=== PATIENT | female | born 1995 | race African-American/Black ===

== ENCOUNTER 2019-07-20 01:10 | Emergency (ER) | payer SELFPAY ==
[2019-07-20] MEDS ORDERED: DIAZEPAM 10 MG/2 ML INJ SYRINGE ONE (02:18)
[2019-07-20 02:40] LABS: Barbiturates NEGATIVE (NEGATIVE); Benzodiazepines NEGATIVE (NEGATIVE); Cocaine NEGATIVE (NEGATIVE); METHAMPHETAM NEGATIVE (NEGATIVE); Methadone NEGATIVE (NEGATIVE); Opiates NEGATIVE (NEGATIVE); Phencyclidine NEGATIVE (NEGATIVE); THC Cannibis POSITIVE (NEGATIVE)
[2019-07-20] MEDS ORDERED: NA CHLORIDE 0.9% 1,000 ML ONE (02:47)
[2019-07-20 02:51] LABS: Urine Blood NEGATIVE (NEG); Urine Glucose NEGATIVE (NEG); Urine Protein TRACE (NEG); Urine Specific Gravity 1.025 (1.005-1.030)
[2019-07-20] MEDS ORDERED: dexAMETHasone 10 MG/ML VIAL ONE (03:23)
[2019-07-20 03:51] LABS: Calcium Oxalate Crystals- Ur MANY (NONE SEEN); Urine Amorphous Sediment 2+ /HPF (NONE SEEN); Urine Bacteria <20 /HPF (<20); Urine Culture Reflex Order NOT NEEDED; Urine RBC NONE SEEN /HPF (NONE SEEN)
[2019-07-20 04:00] LABS: Absolute Lymphocytes (CBC) 2.8 K/uL (0.7-4.9); Basophils % 0.7 % (0-1.3); Hematocrit 35.7 % (36.0-45.0); Lymphocytes % 34.5 % (15.3-44.8); MPV 10.6 fL (7.6-11.3); RBC Red Blood Cell Count 4.73 M/uL (3.86-4.86)
[2019-07-20 04:06] LABS: BUN Blood Urea Nitrogen 7 mg/dL (7-18); Bicarbonate 23 mmol/L (21-32); Glucose Level 84 mg/dL (74-106); Potassium 3.6 mmol/L (3.5-5.1); Sodium Level 143 mmol/L (136-145)
--- NOTE | 2019-07-20 04:41 | ER ---
Nurse's Notes [facility] Name: Dora Diamond Age: 24 yrs Sex: Female : 1995 Arrival Date: 07/20/2019 Time: 01:12 Bed 18 Private MD: Diagnosis: Dental caries;Trigeminal neuralgia Presentation: 07/20 01:25 Presenting complaint: Patient states: States she feels like her cheeks are throbbing wh and swollen. Pt states the feeling started yesterday afternoon. States a 10/10 on a pain scale. Transition of care: patient was not received from another setting of care. Onset of symptoms was July 19, 2019. Risk Assessment: Do you want to hurt yourself or someone else? Patient reports no desire to harm self or others. Initial Sepsis Screen: Does the patient meet any 2 criteria? No. Patient's initial sepsis screen is negative. Does the patient have a suspected source of infection? No. Patient's initial sepsis screen is negative. Care prior to arrival: None. 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 - Social history:: Smoking status: Patient uses tobacco products, denies chronic smoking, but will smoke occasionally. - Ebola Screening: : Patient negative for fever greater than or equal to 101.5 degrees Fahrenheit, and additional compatible Ebola Virus Disease symptoms Patient denies exposure to infectious person. Screenin:29 Abuse screen: Denies threats or abuse. Denies injuries from another. Nutritional screening: No deficits noted. Tuberculosis screening: No symptoms or risk factors identified. Fall Risk None identified. Assessment: 01:30 General: Appears in no apparent distress. comfortable, Behavior is calm, cooperative, wh appropriate for age. Pain: Complains of pain in right cheek, left cheek, right jaw and left jaw Pain does not radiate. Pain currently is 10 out of 10 on a pain scale. Quality of pain is described as throbbing, Pain began 1 day ago. Neuro: Level of Consciousness is awake, alert, obeys commands, Oriented to person, place, time, situation, Appropriate for age. Cardiovascular: Capillary refill < 3 seconds. Respiratory: Airway is patent Respiratory effort is even, unlabored, Respiratory pattern is regular, symmetrical. GI: Abdomen is flat, non-distended. : No signs and/or symptoms were reported regarding the genitourinary system. EENT: Throat is pink. Derm: Skin is intact, is healthy with good turgor, Skin is pink, warm \T\ dry. normal. Musculoskeletal: Circulation, motion, and sensation intact. 02:45 Reassessment: Patient appears in no apparent distress at this time. No changes from previously documented assessment. Patient and/or family updated on plan of care and expected duration. Pain level reassessed. Patient is alert, oriented x 3, equal unlabored respirations, skin warm/dry/pink. NOtified Provider Pt still C/O pain with orders made and carried out. 04:15 Reassessment: Patient appears in no apparent distress at this time. No changes from previously documented assessment. Patient and/or family updated on plan of care and expected duration. Pain level reassessed. Patient is alert, oriented x 3, equal unlabored respirations, skin warm/dry/pink. Vital Signs: 01:31 BP 113 / 86; Pulse 73; Resp 18; Temp 98.2; Pulse Ox 100% ; Weight 65.77 kg; Height 5 wh ft. 11 in. (180.34 cm); 02:45 BP 114 / 76; Pulse 57; Resp 18; Pulse Ox 100% on R/A; Pain 6/10; 04:14 BP 124 / 87; Pulse 78; Resp 18; Pulse Ox 99% ; wh 01:31 Body Mass Index 20.22 (65.77 kg, 180.34 cm) Luis Coma Score: 03:33 Eye Response: spontaneous(4). Verbal Response: oriented(5). Motor Response: obeys snw commands(6). Total: 15. ED Course: 01:12 Patient arrived in ED. cl3 01:17 Bill Pereira is Primary Nurse. wh 01:27 Triage completed. 01:29 Patient has correct armband on for positive identification. Bed in low position. Call light in reach. Side rails up X 1. Pulse ox on. NIBP on. 01:30 Arm band placed on right wrist. 01:31 Paris Ferguson [facility]. snw 01:31 Neto Jay MD is Attending Physician. snw 02:20 Inserted saline lock: 22 gauge in right antecubital area, using aseptic technique. Blood collected. 04:39 Benito Walker MD is Referral Physician. rn 04:53 No provider procedures requiring assistance completed. IV discontinued, intact, bleeding controlled, No redness/swelling at site. Administered Medications: 02:20 Drug: NS 0.9% 1000 ml Route: IV; Rate: 1 bolus; Site: right antecubital; 03:23 Follow up: Response: No adverse reaction; IV Status: Completed infusion 02:25 Drug: Valium 5 mg Route: IVP; Site: right antecubital; 03:23 Follow up: Response: No adverse reaction; RASS: Alert and Calm (0) 03:23 Drug: Decadron - Dexamethasone 10 mg Route: IVP; Site: right antecubital; 04:54 Follow up: Response: No adverse reaction 04:50 Drug: TORadol - Ketorolac 15 mg Route: IVP; Site: right antecubital; 04:54 Follow up: Response: No adverse reaction; Pain is decreased Outcome: 04:40 Discharge ordered by . rn 04:53 Discharged to home ambulatory, with friend. 04:53 Condition: stable 04:53 Discharge instructions given to patient, Instructed on discharge instructions, follow up and referral plans. no drinking with medication, no driving heavy equipment, medication usage, POC Demonstrated understanding of instructions, follow-up care, medications, POC Prescriptions given X 3. 04:55 Patient left the ED. Signatures: Paris Ferguson FNP-C PENSION FUND MANAGER-Csnw Neto Jay MD MD rn Habalo, Winsy Rajan Zapata cl3 Corrections: (The following items were deleted from the chart) 04:15 02:45 BP 124 / 87; Pulse 78bpm; Resp 18bpm; Pulse Ox 99%; [facility]
--- NOTE | 2019-07-20 04:41 | EDPHYS ---
Physician Documentation [facility] Name: Dora Diamond Age: 24 yrs Sex: Female : 1995 Arrival Date: 07/20/2019 Time: 01:12 Bed 18 Private MD: ED Physician Neto Jay HPI: 07/20 01:43 This 24 yrs old Black Female presents to ER via Ambulatory with complaints of Facial snw Pain- Burning Sensation. 01:43 Onset: The symptoms/episode began/occurred acutely, today. Associated signs and snw symptoms: The patient has no apparent associated signs or symptoms. Modifying factors: The patient symptoms are alleviated by nothing, the patient symptoms are aggravated by stimulation, talking, touching ear. The patient has not experienced similar symptoms in the past. The patient has not recently seen a physician. no new medications, no drugs, no ETOH, denies fever, recent illness. 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 - Social history:: Smoking status: Patient uses tobacco products, denies chronic smoking, but will smoke occasionally. - Ebola Screening: : Patient negative for fever greater than or equal to 101.5 degrees Fahrenheit, and additional compatible Ebola Virus Disease symptoms Patient denies exposure to infectious person. ROS: 01:43 Constitutional: Negative for fever, chills, and weight loss, Eyes: Negative for injury, snw pain, redness, and discharge, Neck: Negative for injury, pain, and swelling, Cardiovascular: Negative for chest pain, palpitations, and edema, Respiratory: Negative for shortness of breath, cough, wheezing, and pleuritic chest pain, Abdomen/GI: Negative for abdominal pain, nausea, vomiting, diarrhea, and constipation, Back: Negative for injury and pain, : Negative for injury, bleeding, discharge, and swelling, MS/Extremity: Negative for injury and deformity, Skin: Negative for injury, rash, and discoloration, Neuro: Negative for headache, weakness, numbness, tingling, and seizure. 01:43 ENT: Positive for left facial burning and throbbing pain x today. Exam: 01:40 Constitutional: This is a well developed, well nourished patient who is awake, alert, snw and in no acute distress. Eyes: Pupils equal round and reactive to light, extra-ocular motions intact. Lids and lashes normal. Conjunctiva and sclera are non-icteric and not injected. Cornea within normal limits. Periorbital areas with no swelling, redness, or edema. ENT: Nares patent. No nasal discharge, no septal abnormalities noted. Tympanic membranes are normal and external auditory canals are clear. Oropharynx with no redness, swelling, or masses, exudates, or evidence of obstruction, uvula midline. Mucous membranes moist. Neck: Trachea midline, no thyromegaly or masses palpated, and no cervical lymphadenopathy. Supple, full range of motion without nuchal rigidity, or vertebral point tenderness. No Meningismus. Chest/axilla: Normal chest wall appearance and motion. Nontender with no deformity. No lesions are appreciated. Cardiovascular: Regular rate and rhythm with a normal S1 and S2. No gallops, murmurs, or rubs. Normal PMI, no JVD. No pulse deficits. Respiratory: Lungs have equal breath sounds bilaterally, clear to auscultation and percussion. No rales, rhonchi or wheezes noted. No increased work of breathing, no retractions or nasal flaring. Abdomen/GI: Soft, non-tender, with normal bowel sounds. No distension or tympany. No guarding or rebound. No evidence of tenderness throughout. Back: No spinal tenderness. No costovertebral tenderness. Full range of motion. Skin: Warm, dry with normal turgor. Normal color with no rashes, no lesions, and no evidence of cellulitis. MS/ Extremity: Pulses equal, no cyanosis. Neurovascular intact. Full, normal range of motion. Neuro: Awake and alert, GCS 15, oriented to person, place, time, and situation. Cranial nerves II-XII grossly intact. Motor strength 5/5 in all extremities. Sensory grossly intact. Cerebellar exam normal. Normal gait. Psych: Awake, alert, with orientation to person, place and time. Behavior, mood, and affect are anxious. Vital Signs: 01:31 BP 113 / 86; Pulse 73; Resp 18; Temp 98.2; Pulse Ox 100% ; Weight 65.77 kg; Height 5 wh ft. 11 in. (180.34 cm); 02:45 BP 114 / 76; Pulse 57; Resp 18; Pulse Ox 100% on R/A; Pain 6/10; wh 04:14 BP 124 / 87; Pulse 78; Resp 18; Pulse Ox 99% ; wh 01:31 Body Mass Index 20.22 (65.77 kg, 180.34 cm) wh [place] Coma Score: 03:33 Eye Response: spontaneous(4). Verbal Response: oriented(5). Motor Response: obeys snw commands(6). Total: 15. MDM: 01:31 Patient medically screened. snw 03:33 Data reviewed: vital signs, nurses notes. Counseling: I had a detailed discussion with snw the patient and/or guardian regarding: the historical points, exam findings, and any diagnostic results supporting the discharge/admit diagnosis, the presence of at least one elevated blood pressure reading (>120/80) during this emergency department visit, lab results, the need for outpatient follow up, to return to the emergency department if symptoms worsen or persist or if there are any questions or concerns that arise at home. Response to treatment: the patient's symptoms have mildly improved after treatment. Special discussion: I have referred the patient to see his PCP for further evaluation of high blood pressure. Based on the history and exam findings, there is no indication for further emergent testing or inpatient evaluation. I discussed with the patient/guardian the need to see the neurologist for further evaluation of the symptoms. I discussed with the patient/guardian the need to see the primary care provider for further evaluation of the symptoms. 07/20 01:40 Order name: Urine Drug Screen; Complete Time: 02:51 snw 07/20 01:40 Order name: Urine Microscopic Only; Complete Time: 04:27 snw 07/20 01:40 Order name: CBC with Diff; Complete Time: 04:27 snw 07/20 01:40 Order name: Magnesium; Complete Time: 04:27 snw 07/20 01:40 Order name: Sed Rate; Complete Time: 04:27 snw 07/20 01:42 Order name: Chem 7; Complete Time: 04:27 snw 07/20 01:40 Order name: Urine Test (obtain specimen); Complete Time: 02:28 snw 07/20 01:40 Order name: Urine Dipstick-Ancillary (obtain specimen); Complete Time: 02:28 snw 07/20 02:15 Order name: Urine Dipstick--Ancillary (enter results); Complete Time: 03:03 cm6 07/20 02:15 Order name: Urine --Ancillary (enter results); Complete Time: 03:03 cm6 07/20 01:40 Order name: Misc. Order: 15L NRB x 15 min; Complete Time: 02:28 snw Administered Medications: 02:20 Drug: NS 0.9% 1000 ml Route: IV; Rate: 1 bolus; Site: right antecubital; 03:23 Follow up: Response: No adverse reaction; IV Status: Completed infusion 02:25 Drug: Valium 5 mg Route: IVP; Site: right antecubital; 03:23 Follow up: Response: No adverse reaction; RASS: Alert and Calm (0) 03:23 Drug: Decadron - Dexamethasone 10 mg Route: IVP; Site: right antecubital; 04:54 Follow up: Response: No adverse reaction 04:50 Drug: TORadol - Ketorolac 15 mg Route: IVP; Site: right antecubital; 04:54 Follow up: Response: No adverse reaction; Pain is decreased Disposition: 04:37 Co-signature as Attending Physician, Neto Jay MD Attestation: The patient's history, rn exam findings, diagnostics, and a summary of any interventions or procedures was reviewed in detail with Paris TAYLOR Patient unable to tell me if pain originated from poor dentition, specifically deep cavity on left lower mouth. Some of story sounds like could be trigeminal neuralgia. Unable to differentiate based on patient description so will treat with abx/pain meds/steroids and dentist/neuro f/u. . Disposition: 07/20/19 04:40 Discharged to Home. Impression: Dental caries, Trigeminal neuralgia. - Condition is Stable. - Discharge Instructions: Pain Without a Known Cause, Trigeminal Neuralgia, Dental Pain, Neuropathic Pain. - Prescriptions for Clindamycin HCl 300 mg Oral Capsule - take 1 capsule by ORAL route every 6 hours for 10 days; 40 capsule. Ibuprofen 800 mg Oral Tablet - take 1 tablet by ORAL route every 12 hours As needed take with food; 20 tablet. Ultram 50 mg Oral Tablet - take 1 tablet by ORAL route every 6-8 hours As needed; 15 tablet. - Work release form, Medication Reconciliation Form, Thank You Letter, Antibiotic Education, Prescription Opioid Use form. - Follow up: Benito Walker MD; When: As needed; Reason: Recheck today's complaints, Re-evaluation by your physician. - Problem is new. - Symptoms have improved. Signatures: Dispatcher [employer] EDMS Paris Ferguson, CLEANER AND POLISHER-C CLEANER AND POLISHER-Csnw Neto Jay MD MD rn Habalo, Winsy Corrections: (The following items were deleted from the chart) 04:55 04:40 07/20/2019 04:40 Discharged to Home. Impression: Dental caries; Trigeminal wh neuralgia. Condition is Stable. Discharge Instructions: Pain Without a Known Cause, Trigeminal Neuralgia. Forms are Work release form, Medication Reconciliation Form, Thank You Letter, Antibiotic Education, Prescription Opioid Use. Follow up: Benito Walker; When: As needed; Reason: Recheck today's complaints, Re-evaluation by your physician. Problem is new. Symptoms have improved. rn
[2019-07-20] MEDS ORDERED: KETOROLAC 30 MG/ML INJ ONE (04:44)
[2019-07-20 05:10] VITALS: TEMP 98.2
[2019-07-20 12:45] VITALS: BP 124/87; O2SAT 99
== END 2019-07-20 04:55 | disposition home or self-care (01) ==
LOC: ER 01:10
DX: K02.9 Dental caries, unspecified (principal); G50.0 Trigeminal neuralgia; Z88.0 Allergy status to penicillin; Z72.0 Tobacco use
CPT/HCPCS: 36415; 80048; 80307; 81003; 81015; 81025; 83735; 85025; 85652; 96361; 96374; 96375; 99284; J1100; J3360; J7030

== ENCOUNTER 2020-03-26 00:02 | Emergency (ER) | payer SELFPAY ==
[2020-03-26] MEDS ORDERED: TETANUS & DIPHTHERIA TOX,ADULT 0.5 ML VIAL ONE (00:42)
[2020-03-26] MEDS ORDERED: HYDROCODONE/APAP 5/325 MG TAB ONE (00:42)
[2020-03-26] MEDS ORDERED: CIPROFLOXACIN HCL 500 MG TAB ONE (00:42)
--- NOTE | 2020-03-26 01:27 | ER ---
Nurse's Notes [facility] Name: Dora Diamond Age: 25 yrs Sex: Female : 1995 Arrival Date: 03/26/2020 Time: 00:04 Bed 2 Private MD: Diagnosis: Puncture wound without foreign body, right foot;Periapical abscess without sinus Presentation: 03/26 00:21 Chief complaint: Patient states: "I stepped on a andrea nail tonight and I am also jd3 having lower left sided dental pain with an abscessed tooth.". Coronavirus screen: Proceed with normal triage. Ebola Screen: Patient negative for fever greater than or equal to 101.5 degrees Fahrenheit, and additional compatible Ebola Virus Disease symptoms. Initial Sepsis Screen: Does the patient meet any 2 criteria? No. Patient's initial sepsis screen is negative. Does the patient have a suspected source of infection? No. Patient's initial sepsis screen is negative. Risk Assessment: Do you want to hurt yourself or someone else? Patient reports no desire to harm self or others. Onset of symptoms was March 26, 2020. 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 - Social history:: Smoking status: Patient reports the use of cigarette tobacco products, smokes one-half pack cigarettes per day. Screenin:28 Abuse screen: Denies threats or abuse. Nutritional screening: No deficits noted. jd3 Tuberculosis screening: No symptoms or risk factors identified. Fall Risk Ambulatory Aid- None/Bed Rest/Nurse Assist (0 pts). Gait- Normal/Bed Rest/Wheelchair (0 pts) Mental Status- Oriented to own ability (0 pts). Total Hampton Fall Scale indicates No Risk (0-24 pts). Assessment: 00:24 General: Appears in no apparent distress. uncomfortable, Behavior is calm, cooperative, jd3 appropriate for age. Pain: Complains of pain in left side of head and right foot Quality of pain is described as aching, tender. Neuro: Level of Consciousness is awake, alert, obeys commands, Oriented to person, place, time, situation. Cardiovascular: Denies chest pain, Capillary refill < 3 seconds Patient's skin is warm and dry. Respiratory: Airway is patent Respiratory effort is even, unlabored, Respiratory pattern is regular, symmetrical, Denies cough, shortness of breath. GI: No signs and/or symptoms were reported involving the gastrointestinal system. : No signs and/or symptoms were reported regarding the genitourinary system. EENT: Reports abcess tooth on the left side of mouth. Derm: Skin is intact, Skin is dry, Skin is normal, Skin temperature is warm Wound noted ball of right foot Wound is small puncture wound noted, no redness noted, no bleeding noted. Musculoskeletal: Circulation, motion, and sensation intact. Range of motion: intact in all extremities, Swelling present in left side of mouth. 01:46 Reassessment: Patient appears in no apparent distress at this time. Patient and/or jd3 family updated on plan of care and expected duration. Pain level reassessed. Patient is alert, oriented x 3, equal unlabored respirations, skin warm/dry/pink. Patient states feeling better. Vital Signs: 00:23 BP 138 / 89; Pulse 98; Resp 17 S; Temp 98.0(TE); Pulse Ox 100% on R/A; Weight 63.5 kg jd3 (R); Height 5 ft. 11 in. (180.34 cm) (R); Pain 10/10; 01:46 BP 132 / 89; Pulse 75; Resp 17 S; Pulse Ox 100% on R/A; jd3 00:23 Body Mass Index 19.53 (63.50 kg, 180.34 cm) jd3 ED Course: 00:04 Patient arrived in ED. cf2 00:10 Horacio Carl NP is PHCP. pm1 00:16 Ren Ingram MD is Attending Physician. pm1 00:18 Perez Romano RN is Primary Nurse. jd3 00:22 Triage completed. jd3 00:23 Arm band placed on. jd3 00:28 Patient has correct armband on for positive identification. Bed in low position. Call jd3 light in reach. Side rails up X 1. Pulse ox on. NIBP on. 01:01 Foot Right 3 View XRAY In Process Unspecified. EDMS 01:46 No provider procedures requiring assistance completed. Patient did not have IV access jd3 during this emergency room visit. Administered Medications: 00:40 Drug: Roulette 5 mg-325 mg 1 tabs Route: PO; jd3 01:40 Follow up: Response: No adverse reaction jd3 00:41 Drug: Tetanus-Diphtheria Toxoid Adult 0.5 ml {Change Management Manager: batterii. Exp: jd3 10/27/2021. Lot #: [id number]. } Route: IM; Site: right deltoid; 01:40 Follow up: Response: No adverse reaction jd3 00:41 Drug: Cipro 500 mg Route: PO; jd3 01:40 Follow up: Response: No adverse reaction jd3 Outcome: 01:26 Discharge ordered by MD. pm1 01:46 Discharged to home ambulatory, with family. jd3 01:46 Condition: stable 01:46 Discharge instructions given to patient, Instructed on discharge instructions, follow up and referral plans. medication usage, Demonstrated understanding of instructions, follow-up care, medications, Prescriptions given X 2. 01:48 Patient left the ED. jd3 Signatures: Dispatcher [employer] EDMS Horacio Carl NP FIRE RANGER pm1 Perez Romano RN RN jd3 Dana Doyle cf2 Corrections: (The following items were deleted from the chart) 00:28 00:24 Musculoskeletal: Circulation, motion, and sensation intact. Range of motion: jd3 intact in all extremities, Swelling present in left side of head jd3
--- NOTE | 2020-03-26 01:27 | EDPHYS ---
Physician Documentation [facility] Name: Dora Diamond Age: 25 yrs Sex: Female : 1995 Arrival Date: 03/26/2020 Time: 00:04 Bed 2 Private MD: ED Physician Ren Ingram HPI: 03/26 00:15 This 25 yrs old Black Female presents to ER via Ambulatory with complaints of Stepped pm1 on Nail, Swollen cheek. 00:15 Onset: The symptoms/episode began/occurred today. pm1 00:15 The patient presents with a puncture wound, from a nail. The complaints affect the pm1 right foot. Context: The problem was sustained outdoors, resulted from the patient stepping on a nail, while wearing shoes, the patient can fully bear weight, the patient is able to ambulate. Associated signs and symptoms: The patient has no apparent associated signs or symptoms. Severity of symptoms: in the emergency department the symptoms have improved. The patient has not experienced similar symptoms in the past. Patient also reports swelling to left lower jaw area with dental pain. 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 - Social history:: Smoking status: Patient reports the use of cigarette tobacco products, smokes one-half pack cigarettes per day. ROS: 00:15 MS/extremity: Positive for puncture, of the ball of right foot, Negative for decreased pm1 range of motion, deformity. 00:15 Constitutional: Negative for fever, chills, and weight loss. 00:15 Cardiovascular: Negative for chest pain, palpitations, and edema, Respiratory: Negative for shortness of breath, cough, wheezing, and pleuritic chest pain, Abdomen/GI: Negative for abdominal pain, nausea, vomiting, diarrhea, and constipation, Back: Negative for injury and pain. 00:15 ENT: Positive for dental pain, Negative for sore throat, difficulty swallowing, difficulty handling secretions, hoarseness. 00:15 Skin: Positive for puncture, of the ball of right foot, Negative for cellulitis. Exam: 00:15 Constitutional: This is a well developed, well nourished patient who is awake, alert, pm1 and in no acute distress. Head/Face: Normocephalic, atraumatic. 00:15 Neck: Trachea midline, no thyromegaly or masses palpated, and no cervical lymphadenopathy. Supple, full range of motion without nuchal rigidity, or vertebral point tenderness. No Meningismus. 00:15 Back: No spinal tenderness. No costovertebral tenderness. Full range of motion. Skin: Warm, dry with normal turgor. Normal color with no rashes, no lesions, and no evidence of cellulitis. MS/ Extremity: Pulses equal, no cyanosis. Neurovascular intact. Full, normal range of motion. 00:15 ENT: External ear(s): are unremarkable, Ear canal(s): are normal, TM's: are normal, Dental exam: dental caries, gum swelling, not appreciated, missing teeth, specifically the lower left first molar (#19), left lower jaw swelling. 00:15 Cardiovascular: Exam negative for acute changes, Rate: normal, Rhythm: regular, Pulses: no pulse deficits are appreciated. 00:15 Respiratory: Exam negative for acute changes, respiratory distress, shortness of breath. 00:15 Neuro: Exam negative for acute changes, Orientation: is normal, Mentation: is normal, Motor: is normal, moves all fours. Vital Signs: 00:23 BP 138 / 89; Pulse 98; Resp 17 S; Temp 98.0(TE); Pulse Ox 100% on R/A; Weight 63.5 kg jd3 (R); Height 5 ft. 11 in. (180.34 cm) (R); Pain 10/10; 01:46 BP 132 / 89; Pulse 75; Resp 17 S; Pulse Ox 100% on R/A; jd3 00:23 Body Mass Index 19.53 (63.50 kg, 180.34 cm) jd3 MDM: 00:15 Patient medically screened. pm1 01:25 Data reviewed: vital signs. Data interpreted: Pulse oximetry: on room air is 100 %. pm1 Interpretation: normal. Counseling: I had a detailed discussion with the patient and/or guardian regarding: the historical points, exam findings, and any diagnostic results supporting the discharge/admit diagnosis, radiology results, the need for outpatient follow up, for definitive care, a dentist, a family practitioner, to return to the emergency department if symptoms worsen or persist or if there are any questions or concerns that arise at home. 01:25 Special discussion: I discussed in detail with the patient the higher chance of wound pm1 infection based on his presenting history. foot puncture wound through slipper. 03/26 00:19 Order name: Foot Right 3 View XRAY pm1 Administered Medications: 00:40 Drug: [place] 5 mg-325 mg 1 tabs Route: PO; jd3 01:40 Follow up: Response: No adverse reaction jd3 00:41 Drug: Tetanus-Diphtheria Toxoid Adult 0.5 ml {Core Paster: [employer]ra[employer]oat. Exp: jd3 10/27/2021. Lot #: [id number]. } Route: IM; Site: right deltoid; :40 Follow up: Response: No adverse reaction jd3 00:41 Drug: Cipro 500 mg Route: PO; jd3 :40 Follow up: Response: No adverse reaction jd3 Disposition: 04:26 Co-signature as Attending Physician, Ren Ingram MD. mh7 Disposition: 03/26/20 01:26 Discharged to Home. Impression: Puncture wound without foreign body, right foot, Periapical abscess without sinus. - Condition is Stable. - Discharge Instructions: Dental Abscess, Puncture Wound. - Prescriptions for Cipro 500 mg Oral Tablet - take 1 tablet by ORAL route every 12 hours for 7 days; 14 tablet. Tramadol 50 mg Oral Tablet - take 1 tablet by ORAL route every 8 hours as needed; 12 tablet. - Medication Reconciliation Form, Thank You Letter, Antibiotic Education, Prescription Opioid Use form. - Follow up: Emergency Department; When: As needed; Reason: Worsening of condition. Follow up: Private Physician; When: 2 - 3 days; Reason: Recheck today's complaints, Continuance of care, Re-evaluation by your physician. - Problem is new. - Symptoms have improved. Signatures: Dispatcher [employer] EDMS Horacio Carl, FRUIT ROOM HAND FRUIT ROOM HAND pm1 Perez Romano RN RN Ren Mauro MD MD mh7 Corrections: (The following items were deleted from the chart) 01: 01:26 03/26/2020 01:26 Discharged to Home. Impression: Puncture wound without foreign pm1 body, right foot. Condition is Stable. Forms are Medication Reconciliation Form, Thank You Letter, Antibiotic Education, Prescription Opioid Use. Follow up: Emergency Department; When: As needed; Reason: Worsening of condition. Follow up: Private Physician; When: 2 - 3 days; Reason: Recheck today's complaints, Continuance of care, Re-evaluation by your physician. Problem is new. Symptoms have improved. pm1 01:48 01:26 03/26/2020 01:26 Discharged to Home. Impression: Puncture wound without foreign jd3 body, right foot; Periapical abscess without sinus. Condition is Stable. Forms are Medication Reconciliation Form, Thank You Letter, Antibiotic Education, Prescription Opioid Use. Follow up: Emergency Department; When: As needed; Reason: Worsening of condition. Follow up: Private Physician; When: 2 - 3 days; Reason: Recheck today's complaints, Continuance of care, Re-evaluation by your physician. Problem is new. Symptoms have improved. pm1
[2020-03-26 02:12] VITALS: TEMP 98; O2SAT 100
[2020-03-26 02:13] VITALS: BP 132/89
--- NOTE | 2020-03-26 08:26 | RAD REPORT ---
EXAM DESCRIPTION: RAD - Foot Right 3 View - 03/26/2020 1:01 am CLINICAL HISTORY: puncture Trauma, puncture wound COMPARISON: No comparisons FINDINGS: Soft tissue swelling is seen about the foot. No fracture or radiopaque foreign body.
== END 2020-03-26 01:48 | disposition home or self-care (01) ==
LOC: ER 00:02
DX: K04.7 Periapical abscess without sinus (principal); F17.210 Nicotine dependence, cigarettes, uncomplicated; W45.0XXA Nail entering through skin, initial encounter; Y93.01 Activity, walking, marching and hiking; Y92.89 Other specified places as the place of occurrence of the external cause; Z23 Encounter for immunization; Z88.0 Allergy status to penicillin
CPT/HCPCS: 90471; 90714; 99284

== ENCOUNTER 2020-11-08 12:26 | Emergency (ER) | payer OTHER, SELFPAY ==
--- OUTSIDE RECORDS SUMMARY | 2020-11-08 12:29 | XMS REPORT | Continuity of Care Document ---
:1995 Author Organization [facility] t Address [address] [place] [address] Care Team Providers Name Role Phone Patito Vargas Attending Clinician Ultrasound Attending Clinician Unavailable Emre Zavala Attending Clinician Problems This patient has no known problems. Allergies, Adverse Reactions, Alerts This patient has no known allergies or adverse reactions. Medications This patient has no known medications. Procedures This patient has no known procedures. 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 [id number] REGIONAL [id number] MATERNAL [id number] & CHILD 107 [facility] 2020-10-17 2020-10-17 Mapping Supervisor Keena [facility] [id number] 10:59:20 11:53:13 Visit Chad HOLLOW HAND[employer] BENCH WORKER [id number] REGIONAL [id number] MATERNAL [id number] & CHILD 369 [facility] 2020-09-24 2020-09-24 Routine JESÚS [facility] [id number] 15:34:26 15:52:04 Segundo Andrea HOLLOW HANDLE BENCH WORKER [id number] Visit [facility] [id number] MATERNAL [id number] & CHILD [address] [place] [address] Results This patient has no known results.
[2020-11-08 13:03] LABS: Absolute Lymphocytes (CBC) 1.5 K/uL (0.7-4.9); Basophils % 0.5 % (0-1.3); Hematocrit 31.7 % (36.0-45.0); Lymphocytes % 22.7 % (15.3-44.8); RBC Red Blood Cell Count 4.18 M/uL (3.86-4.86)
[2020-11-08 13:15] LABS: BUN Blood Urea Nitrogen 10 mg/dL (7-18); Bicarbonate 21 mmol/L (21-32); Glucose Level 72 mg/dL (74-106); Potassium 3.9 mmol/L (3.5-5.1); Sodium Level 140 mmol/L (136-145)
[2020-11-08 13:54] LABS: Urine Bacteria 20-50 /HPF (<20); Urine RBC <5 /HPF (NONE SEEN)
--- NOTE | 2020-11-08 14:01 | EDPHYS ---
Physician Documentation [facility] Name: Dora Diamond Age: 25 yrs Sex: Female : 1995 Arrival Date: 11/08/2020 Time: 12:29 Bed 20 Private MD: ED Physician Jey Mchugh HPI: 11/08 17:27 This 25 yrs old Black Female presents to ER via Ambulatory with complaints of Headache. kb 17:27 The patient complains of pain to the right gnosticist. The patient describes the headache kb as constant. Onset: The symptoms/episode began/occurred 1 month(s) ago. Associated signs and symptoms: The patient has no apparent associated signs or symptoms. Severity of symptoms: At its worst the pain was mild, moderate, in the emergency department the pain has improved. Headache History: Denies prior headaches. The symptoms are alleviated by nothing. the symptoms are aggravated by nothing, pressure to area. The patient has not experienced similar symptoms in the past. The patient has not recently seen a physician. pt reports right sided headache that started a month ago and has been intermittent. . Historical: - Allergies: 12:33 PENICILLINS; ll1 - PMHx: 12:33 None; ll1 - PSHx: 12:33 ; ll1 - Immunization history:: Flu vaccine is not up to date. - Social history:: Smoking status: Patient denies any tobacco usage or history of. ROS: 17:29 Constitutional: Negative for fever, chills, and weight loss, Eyes: Negative for injury, kb pain, redness, and discharge, ENT: Negative for injury, pain, and discharge, Cardiovascular: Negative for chest pain, palpitations, and edema, Respiratory: Negative for shortness of breath, cough, wheezing, and pleuritic chest pain, Abdomen/GI: Negative for abdominal pain, nausea, vomiting, diarrhea, and constipation, MS/Extremity: Negative for injury and deformity, Skin: Negative for injury, rash, and discoloration. 17:29 Neuro: Positive for headache. Exam: 17:29 Constitutional: This is a well developed, well nourished patient who is awake, alert, kb and in no acute distress. Head/Face: Normocephalic, atraumatic. Eyes: Pupils equal round and reactive to light, extra-ocular motions intact. Lids and lashes normal. Conjunctiva and sclera are non-icteric and not injected. Cornea within normal limits. Periorbital areas with no swelling, redness, or edema. ENT: Nares patent. No nasal discharge, no septal abnormalities noted. Tympanic membranes are normal and external auditory canals are clear. Oropharynx with no redness, swelling, or masses, exudates, or evidence of obstruction, uvula midline. Mucous membranes moist. Cardiovascular: Regular rate and rhythm with a normal S1 and S2. No gallops, murmurs, or rubs. Normal PMI, no JVD. No pulse deficits. Respiratory: Lungs have equal breath sounds bilaterally, clear to auscultation and percussion. No rales, rhonchi or wheezes noted. No increased work of breathing, no retractions or nasal flaring. Neuro: Awake and alert, GCS 15, oriented to person, place, time, and situation. Cranial nerves II-XII grossly intact. Motor strength 5/5 in all extremities. Sensory grossly intact. Cerebellar exam normal. Normal gait. 17:29 Abdomen/GI: Inspection: gravid appearance, is noted. Vital Signs: 12:33 BP 108 / 67; Pulse 86; Resp 17; Temp 97.8; Pulse Ox 99% ; Height 5 ft. 11 in. (180.34 ll1 cm); Pain 10/10; 12:40 BP 107 / 65; Pulse 81; Resp 16; Temp 98.4; Pulse Ox 100% ; dm14 13:00 BP 106 / 67; Pulse 79; Resp 16; Pulse Ox 100% ; dm14 15:00 BP 106 / 72; Pulse 76; Resp 16; Pulse Ox 100% ; dm14 Luis Coma Score: 17:27 Eye Response: spontaneous(4). Verbal Response: oriented(5). Motor Response: obeys kb commands(6). Total: 15. MDM: 12:37 Patient medically screened. kb 14:00 Data reviewed: vital signs, nurses notes. Data interpreted: Pulse oximetry: on room air kb is 99 %. Interpretation: normal. Counseling: I had a detailed discussion with the patient and/or guardian regarding: the historical points, exam findings, and any diagnostic results supporting the discharge/admit diagnosis, lab results, the need for outpatient follow up, a family practitioner, an OB/Gyne specialist, to return to the emergency department if symptoms worsen or persist or if there are any questions or concerns that arise at home. 11/08 12:39 Order name: CBC with Diff kb 11/08 12:39 Order name: Basic Metabolic Panel kb 11/08 12:39 Order name: CBC with Automated Diff; Complete Time: 13:09 EDMS 11/08 12:39 Order name: Basic Metabolic Panel; Complete Time: 13:24 EDMS 11/08 13:09 Order name: Urine Microscopic Only; Complete Time: 13:57 dh3 11/08 13:11 Order name: Urine Dipstick--Ancillary (enter results) eb 11/08 12:38 Order name: Urine Dipstick-Ancillary (obtain specimen); Complete Time: 13:06 kb 11/08 12:39 Order name: IV Start; Complete Time: 12:55 kb 11/08 13:09 Order name: FHT's; Complete Time: 14:09 kb 11/08 13:11 Order name: Urine Dipstick-Ancillary; Complete Time: 14:04 EDMS 11/08 13:56 Order name: Urine Culture EDIA Administered Medications: 14:00 Drug: NS 0.9% 1000 ml Route: IV; Rate: 1000 ml; Site: right antecubital; dm14 14:44 Drug: Tylenol 1000 mg Route: PO; dm14 14:47 Drug: Macrobid 100 mg Route: PO; dm14 Disposition: 19:00 Co-signature as Attending Physician, Jey Mchugh MD I agree with the assessment and kdr plan of care. Disposition: 11/08/20 14:00 Discharged to Home. Impression: Headache, Urinary tract infection, site not specified. - Condition is Stable. - Discharge Instructions: and Urinary Tract Infection, General Headache Without Cause, [id number]. - Prescriptions for Macrobid 100 mg Oral Capsule - take 1 capsule by ORAL route every 12 hours for 5 days; 10 capsule. - Medication Reconciliation Form, Thank You Letter, Antibiotic Education, Prescription Opioid Use form. - Follow up: Emergency Department; When: As needed; Reason: Worsening of condition. Follow up: Private Physician; When: 2 - 3 days; Reason: Recheck today's complaints, Continuance of care, Re-evaluation by your physician. Signatures: Dispatcher [employer] EDElle Mcduffie FNP-C FNP-Javier Jey Mchugh MD MD kdr Naresh Zapata, RN RN ll1 Anjelica Ashraf RN RN dm14 Corrections: (The following items were deleted from the chart) 14:00 14:00 11/08/2020 14:00 Discharged to Home. Impression: Headache. Condition is Stable. kb Forms are Medication Reconciliation Form, Thank You Letter, Antibiotic Education, Prescription Opioid Use. Follow up: Emergency Department; When: As needed; Reason: Worsening of condition. Follow up: Private Physician; When: 2 - 3 days; Reason: Recheck today's complaints, Continuance of care, Re-evaluation by your physician. kb 15:12 14:00 11/08/2020 14:00 Discharged to Home. Impression: Headache; Urinary tract dm14 infection, site not specified. Condition is Stable. Discharge Instructions: General Headache Without Cause, [id number]. Forms are Medication Reconciliation Form, Thank You Letter, Antibiotic Education, Prescription Opioid Use. Follow up: Emergency Department; When: As needed; Reason: Worsening of condition. Follow up: Private Physician; When: 2 - 3 days; Reason: Recheck today's complaints, Continuance of care, Re-evaluation by your physician. kb
--- NOTE | 2020-11-08 14:01 | ER ---
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 No fever. 24 weeks ll1 . G3, P3. Coronavirus screen: Client denies travel out of the [place] in the last 14 days. At this time, the client does not indicate any symptoms associated with coronavirus-19. Ebola Screen: Patient denies travel to an Ebola-affected area in the 21 days before illness onset. Initial Sepsis Screen: Does the patient meet any 2 criteria? No. Patient's initial sepsis screen is negative. Does the patient have a suspected source of infection? Yes: Other: CHRISTIAN. Risk Assessment: Do you want to hurt yourself or someone else? Patient reports no desire to harm self or others. Onset of symptoms was October 08, 2020. 12:33 Method Of Arrival: Ambulatory ll1 12:33 Acuity: CECILLE 3 ll1 Historical: - Allergies: 12:33 PENICILLINS; ll1 - PMHx: 12:33 None; ll1 - PSHx: 12:33 ; ll1 - Immunization history:: Flu vaccine is not up to date. - Social history:: Smoking status: Patient denies any tobacco usage or history of. Screenin:40 Abuse screen: Denies threats or abuse. Denies injuries from another. Nutritional dm14 screening: No deficits noted. Tuberculosis screening: No symptoms or risk factors identified. Fall Risk None identified. Assessment: 12:40 General: Appears in no apparent distress. comfortable, well groomed, Behavior is calm, dm14 cooperative, appropriate for age. Pain: Complains of pain in right temporal area Pain currently is 10 out of 10 on a pain scale. Neuro: No deficits noted. 14:00 Reassessment: No changes from previously documented assessment. dm14 Vital Signs: 12:33 BP 108 / 67; Pulse 86; Resp 17; Temp 97.8; Pulse Ox 99% ; Height 5 ft. 11 in. (180.34 ll1 cm); Pain 10/10; 12:40 BP 107 / 65; Pulse 81; Resp 16; Temp 98.4; Pulse Ox 100% ; dm14 13:00 BP 106 / 67; Pulse 79; Resp 16; Pulse Ox 100% ; dm14 15:00 BP 106 / 72; Pulse 76; Resp 16; Pulse Ox 100% ; dm14 Vitals: 14:10 Heart Tones FHR is 136 bpm, strong and regular. dm14 Luis Coma Score: 17:27 Eye Response: spontaneous(4). Verbal Response: oriented(5). Motor Response: obeys kb commands(6). Total: 15. ED Course: 12:29 Patient arrived in ED. ds1 12:34 Triage completed. ll1 12:34 Arm band placed on Patient placed in an exam room, on a stretcher. ll1 12:36 Elle Dawson [facility]-C [facility] kb 12:37 Jey Mchugh MD is Attending Physician. kb 12:40 Patient has correct armband on for positive identification. Bed in low position. Call dm14 light in reach. 12:40 No provider procedures requiring assistance completed. dm14 12:50 Initial lab(s) drawn, by me, sent to lab. Inserted saline lock: 20 gauge in right dh3 forearm, using aseptic technique. Blood collected. 13:00 Urine collected: clean catch specimen, cloudy. [facility] 13:01 Marbella Aguiar, SALINAS is Primary Nurse. ss 15:00 IV discontinued, intact, bleeding controlled, No redness/swelling at site. Pressure dm14 dressing applied. Administered Medications: 14:00 Drug: NS 0.9% 1000 ml Route: IV; Rate: 1000 ml; Site: right antecubital; dm14 14:44 Drug: Tylenol 1000 mg Route: PO; dm14 14:47 Drug: Macrobid 100 mg Route: PO; dm14 Outcome: 14:00 Discharge ordered by . kb 15:00 Discharged to home ambulatory. dm14 15:00 Condition: stable 15:00 Discharge instructions given to patient, Instructed on discharge instructions, follow up and referral plans. medication usage, Demonstrated understanding of instructions, follow-up care, medications. 15:12 Patient left the ED. dm14 Signatures: Elle Dawson FNP-C FNP-Flavia Hayes ds1 Marbella Aguiar, RN RN ss Nel Cooper dh3 Naresh Zapata, RN RN ll1 Anjelica Ashraf, RN RN dm14
[2020-11-08 14:03] LABS: Urine Blood NEGATIVE (NEG); Urine Glucose NEGATIVE (NEG); Urine Protein TRACE (NEG); Urine Specific Gravity 1.025 (1.005-1.030)
[2020-11-08] MEDS ORDERED: ACETAMINOPHEN 500 MG TAB ONE (14:59)
[2020-11-08] MEDS ORDERED: NITROFURAN MACRO 100 MG CAP PO ONE (15:03)
[2020-11-08 15:23] VITALS: TEMP 98.4; O2SAT 100
[2020-11-08 15:26] VITALS: BP 106/72
== END 2020-11-08 15:12 | disposition home or self-care (01) ==
LOC: ER 12:26
DX: O23.42 Unspecified infection of urinary tract in pregnancy, second trimester (principal); Z3A.24 24 weeks gestation of pregnancy; Z88.0 Allergy status to penicillin
CPT/HCPCS: 36415; 80048; 81003; 81015; 85025; 87086; 87088; 99284